=== PATIENT | male | born 1965 | race Caucasian/White ===

== ENCOUNTER 2019-02-18 09:35 | Emergency (ER) | payer OTHER ==
[~2019-02-18] VITALS: Ht 177.8 cm; Wt 80.3 kg
[2019-02-18 11:23] LABS: BE 0 mmol/L (-2 to +3); PCO2 32.2 mmHg (35.0-45.0); pH 7.466 (7.340-7.450)
[2019-02-18 11:24] LABS: ABSOLUTE BASOPHILS 0.1 thou/uL (0.0-0.2); ABSOLUTE EOSINOPHILS 0.4 thou/uL (0.0-0.7); ABSOLUTE LYMPHOCYTES 0.7 thou/uL (0.8-5.3); ABSOLUTE MONOCYTES 0.9 thou/uL (0.0-1.2); ABSOLUTE NEUTROPHILS 5.1 thou/uL (1.6-8.1); EOSINOPHILS 5.9 %; HEMATOCRIT 47.7 % (42.0-52.0); LYMPHOCYTES 9.3 %; MCH 34.8 pg (26.0-34.0); MCHC 33.6 g/dL (28.0-37.0); MCV 103.5 fL (80.0-100.0); MONOCYTES 12.7 %; MPV 7.9 fl. (7.2-11.1); NUCLEATED RBCS 0 /100WBC; PLATELET COUNT* 277 thou/uL (150-400); POLYS 71.1 %; RBC 4.61 mil/uL (4.50-6.00); RDW-CV 14.4 % (10.5-14.5); WBC 7.2 thou/uL (4.0-11.0)
[2019-02-18 11:26] LABS: PO2 56.4 mmHg (75.0-100.0)
[2019-02-18 11:29] LABS: ANION GAP 8 mmol/L (7-16); BUN 7 mg/dL (7-18); CALCIUM 8.4 mg/dL (8.5-10.1); CHLORIDE 103 mmol/L (98-107); CO2 30 mmol/L (21-32); CREATININE 0.8 mg/dL (0.6-1.3); GLUCOSE 109 mg/dL (70-99); POTASSIUM 3.9 mmol/L (3.5-5.1); SODIUM 141 mmol/L (136-145)
[2019-02-18 11:40] LABS: ALBUMIN 3.2 g/dL (3.4-5.0); ALKALINE PHOSPHATASE 75 U/L (46-116); NT-PRO BRAIN NAT PEPTIDE 351 pg/mL (<300); SGOT 13 U/L (15-37); SGPT 20 U/L (30-65); TOTAL BILIRUBIN 0.3 mg/dL (<0.1-1.0); TOTAL PROTEIN 7.3 g/dL (6.4-8.2); TROPONIN-I LEVEL <0.06 ng/mL (<0.06)
[2019-02-18] MEDS ORDERED: IPRAT-ALBUT 0.5-3 ML INH (13:11)
[2019-02-18] MEDS ORDERED: MUCUS-ER MAX1200 MG PO (13:11)
[2019-02-18] MEDS ORDERED: LEVAQUIN 750 M750 MG PO (13:11)
[2019-02-18] MEDS ORDERED: PREDNISONE50 MG PO (14:04)
[2019-02-18 14:48] VITALS: BP 156/100
--- NOTE | 2019-02-18 16:50 | NUR ---
PAGED BY ER TO TELL CM THAT PT.NEEDED HOME O2. HE HAD TO LEAVE HIS KIDS WERE GETTING HOME FROM SCHOOL AND HE NEEDED TO GET HOME FOR THEM. R.T.BUSY WITH 2 CODES IN HOSPITAL. PT.REFUSED TO WAIT. WANTED O2 SET UP FOR HIM POST DISCHARGE. DISCUSSED WITH HER. ABG REVIEWED. HE DID NOT MEET CRITERIA FOR O2.
--- NOTE | 2019-02-18 16:57 | EKG ---
[place] [address] ELECTROCARDIOGRAM REPORT Name: MELONIE QUIÑONES Room: 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
== END 2019-02-18 14:50 | disposition home or self-care (01) ==
LOC: M.ERS 09:35
PROVIDERS: Personal Emergency Response Attendant
DX: J40 Bronchitis, not specified as acute or chronic (principal); R09.02 Hypoxemia; I10 Essential (primary) hypertension; F17.210 Nicotine dependence, cigarettes, uncomplicated